=== PATIENT | female | born 1955 | race Caucasian/White ===

== ENCOUNTER 2021-11-11 18:07 | Inpatient (IN) | payer MEDICARE ==
[2021-11-11] MEDS ORDERED: ACETAMINOPHEN TAB 325 MG TAB PO STA (18:35)
--- NOTE | 2021-11-11 18:40 | ED ---
General Adult HPI - General Chief complaint: Urogenital Stated complaint: urogenital Time Seen by Provider: 11/11/21 18:25 Source: patient, RN notes reviewed Mode of arrival: EMS Limitations: no limitations - History of Present Illness Initial comments: Patient is a pleasant 65-year-old female presenting to the emergency department with concerns for urinary tract infection. Patient has had thicker, per her leg urine for the past week. Patient has been fatigued with some general weakness. No abdominal pain. No back pain. No upper respiratory symptoms. Patient was unaware that she had a fever. - Related Data Allergies Allergy/AdvReac Type Severity Reaction Status Date / Time No Known Allergies Allergy Verified 11/11/21 18:24 Review of Systems ROS Statement: Those systems with pertinent positive or pertinent negative responses have been documented in the HPI. ROS Other: All systems not noted in ROS Statement are negative. Constitutional: Reports: as per HPI Eyes: Denies: eye pain ENT: Denies: ear pain Respiratory: Denies: cough Cardiovascular: Denies: chest pain Endocrine: Denies: fatigue Gastrointestinal: Denies: abdominal pain Genitourinary: Reports: as per HPI, urgency, frequency Musculoskeletal: Denies: back pain Skin: Denies: rash Neurological: Denies: weakness Psychiatric: Denies: depression Past Medical History Past Medical History: Deep Vein Thrombosis (DVT) Additional Past Medical History / Comment(s): Diverticulitis 2020, pancreatitis History of Any Multi-Drug Resistant Organisms: None Reported Past Surgical History: Tonsillectomy Additional Past Surgical History / Comment(s): Abdominal surgery for internal bleeding Past Psychological History: No Psychological Hx Reported Smoking Status: Current every day smoker Past Alcohol Use History: None Reported Past Drug Use History: None Reported General Exam Limitations: no limitations General appearance: alert, in no apparent distress Head exam: Present: normocephalic Eye exam: Present: normal appearance Neck exam: Present: normal inspection Respiratory exam: Present: normal lung sounds bilaterally Cardiovascular Exam: Present: tachycardia GI/Abdominal exam: Present: soft. Absent: tenderness Extremities exam: Present: normal inspection Neurological exam: Present: alert Psychiatric exam: Present: normal affect, normal mood Skin exam: Present: normal color. Absent: rash Course Vital Signs 11/11/21 18:18 Temperature 101.4 F H Pulse Rate 105 H Respiratory 17 Rate Blood Pressure 125/95 O2 Sat by Pulse 93 L Oximetry - Reevaluation(s) Reevaluation #1: 11/11/21 19:49 Patient does meet sepsis criteria diagnosed at 1949. Blood culture and lactic acid have been ordered. IV antibiotics will be ordered. 11/11/21 19:50 Patient not a candidate for oral antivirals secondary to symptoms present for the past week. Monoclonal antibodies are not present. Medical Decision Making - Medical Decision Making Case discussed with [facility] physician Dr. Bravo, who will admit - Lab Data Result diagrams: 11/11/21 18:42 11/11/21 18:42 Lab Results 11/11/21 11/11/21 11/11/21 Range/Units 18:42 18:42 18:42 WBC 17.9 H (3.8-10.6) k/uL RBC 4.43 (3.80-5.40) m/uL Hgb 14.3 (11.4-16.0) gm/dL Hct 44.0 (34.0-46.0) % MCV 99.4 (80.0-100.0) fL MCH 32.4 (25.0-35.0) pg MCHC 32.6 (31.0-37.0) g/dL RDW 14.8 (11.5-15.5) % Plt Count 217 (150-450) k/uL MPV 8.7 Neutrophils % 91 % Lymphocytes % 4 % Monocytes % 4 % Eosinophils % 0 % Basophils % 0 % Neutrophils # 16.2 H (1.3-7.7) k/uL Lymphocytes # 0.7 L (1.0-4.8) k/uL Monocytes # 0.6 (0-1.0) k/uL Eosinophils # 0.0 (0-0.7) k/uL Basophils # 0.1 (0-0.2) k/uL Macrocytosis Slight PT 11.9 (9.0-12.0) sec INR 1.1 (<1.2) APTT 27.3 (22.0-30.0) sec Sodium (137-145) mmol/L Potassium (3.5-5.1) mmol/L Chloride (98-107) mmol/L Carbon Dioxide (22-30) mmol/L Anion Gap mmol/L BUN (7-17) mg/dL Creatinine (0.52-1.04) mg/dL Est GFR (CKD-EPI)AfAm (>60 ml/min/1.73 sqM) Est GFR (CKD-EPI)NonAf (>60 ml/min/1.73 sqM) Glucose (74-99) mg/dL Plasma Lactic Acid Herbie (0.7-2.0) mmol/L Calcium (8.4-10.2) mg/dL Total Bilirubin (0.2-1.3) mg/dL AST (14-36) U/L ALT (4-34) U/L Alkaline Phosphatase (38-126) U/L Total Protein (6.3-8.2) g/dL Albumin (3.5-5.0) g/dL Urine Color Yellow Urine Appearance Turbid H (Clear) Urine pH 6.0 (5.0-8.0) Ur Specific [place] 1.019 (1.001-1.035) Urine Protein 1+ H (Negative) Urine Glucose (UA) Negative (Negative) Urine Ketones 1+ H (Negative) Urine Blood Large H (Negative) Urine Nitrite Positive H (Negative) Urine Bilirubin Negative (Negative) Urine Urobilinogen 2.0 (<2.0) mg/dL Ur Leukocyte Esterase Large H (Negative) Urine RBC 83 H (0-5) /hpf Urine WBC >182 H (0-5) /hpf Urine WBC Clumps Many H (None) /hpf Ur Squamous Epith Cells 4 (0-4) /hpf Urine Bacteria Many H (None) /hpf Urine Mucus Many H (None) /hpf Urine Yeast (Budding) Few H (None) /hpf Coronavirus (PCR) (Not Detectd) Influenza Type A RNA (Not Detectd) Influenza Type B (PCR) (Not Detectd) 11/11/21 11/11/21 11/11/21 Range/Units 18:42 18:42 18:42 WBC (3.8-10.6) k/uL RBC (3.80-5.40) m/uL Hgb (11.4-16.0) gm/dL Hct (34.0-46.0) % MCV (80.0-100.0) fL MCH (25.0-35.0) pg MCHC (31.0-37.0) g/dL RDW (11.5-15.5) % Plt Count (150-450) k/uL MPV Neutrophils % % Lymphocytes % % Monocytes % % Eosinophils % % Basophils % % Neutrophils # (1.3-7.7) k/uL Lymphocytes # (1.0-4.8) k/uL Monocytes # (0-1.0) k/uL Eosinophils # (0-0.7) k/uL Basophils # (0-0.2) k/uL Macrocytosis PT (9.0-12.0) sec INR (<1.2) APTT (22.0-30.0) sec Sodium 136 L (137-145) mmol/L Potassium 2.5 L* (3.5-5.1) mmol/L Chloride 102 (98-107) mmol/L Carbon Dioxide 23 (22-30) mmol/L Anion Gap 11 mmol/L BUN 21 H (7-17) mg/dL Creatinine 0.77 (0.52-1.04) mg/dL Est GFR (CKD-EPI)AfAm >90 (>60 ml/min/1.73 sqM) Est GFR (CKD-EPI)NonAf 81 (>60 ml/min/1.73 sqM) Glucose 108 H (74-99) mg/dL Plasma Lactic Acid Herbie 1.6 (0.7-2.0) mmol/L Calcium 7.6 L (8.4-10.2) mg/dL Total Bilirubin 0.5 (0.2-1.3) mg/dL AST 32 (14-36) U/L ALT 24 (4-34) U/L Alkaline Phosphatase 294 H (38-126) U/L Total Protein 5.4 L (6.3-8.2) g/dL Albumin 2.6 L (3.5-5.0) g/dL Urine Color Urine Appearance (Clear) Urine pH (5.0-8.0) Ur Specific [place] (1.001-1.035) Urine Protein (Negative) Urine Glucose (UA) (Negative) Urine Ketones (Negative) Urine Blood (Negative) Urine Nitrite (Negative) Urine Bilirubin (Negative) Urine Urobilinogen (<2.0) mg/dL Ur Leukocyte Esterase (Negative) Urine RBC (0-5) /hpf Urine WBC (0-5) /hpf Urine WBC Clumps (None) /hpf Ur Squamous Epith Cells (0-4) /hpf Urine Bacteria (None) /hpf Urine Mucus (None) /hpf Urine Yeast (Budding) (None) /hpf Coronavirus (PCR) (Not Detectd) Influenza Type A RNA Not Detected (Not Detectd) Influenza Type B (PCR) Not Detected (Not Detectd) 11/11/21 Range/Units 18:42 WBC (3.8-10.6) k/uL RBC (3.80-5.40) m/uL Hgb (11.4-16.0) gm/dL Hct (34.0-46.0) % MCV (80.0-100.0) fL MCH (25.0-35.0) pg MCHC (31.0-37.0) g/dL RDW (11.5-15.5) % Plt Count (150-450) k/uL MPV Neutrophils % % Lymphocytes % % Monocytes % % Eosinophils % % Basophils % % Neutrophils # (1.3-7.7) k/uL Lymphocytes # (1.0-4.8) k/uL Monocytes # (0-1.0) k/uL Eosinophils # (0-0.7) k/uL Basophils # (0-0.2) k/uL Macrocytosis PT (9.0-12.0) sec INR (<1.2) APTT (22.0-30.0) sec Sodium (137-145) mmol/L Potassium (3.5-5.1) mmol/L Chloride (98-107) mmol/L Carbon Dioxide (22-30) mmol/L Anion Gap mmol/L BUN (7-17) mg/dL Creatinine (0.52-1.04) mg/dL Est GFR (CKD-EPI)AfAm (>60 ml/min/1.73 sqM) Est GFR (CKD-EPI)NonAf (>60 ml/min/1.73 sqM) Glucose (74-99) mg/dL Plasma Lactic Acid Herbie (0.7-2.0) mmol/L Calcium (8.4-10.2) mg/dL Total Bilirubin (0.2-1.3) mg/dL AST (14-36) U/L ALT (4-34) U/L Alkaline Phosphatase (38-126) U/L Total Protein (6.3-8.2) g/dL Albumin (3.5-5.0) g/dL Urine Color Urine Appearance (Clear) Urine pH (5.0-8.0) Ur Specific [place] (1.001-1.035) Urine Protein (Negative) Urine Glucose (UA) (Negative) Urine Ketones (Negative) Urine Blood (Negative) Urine Nitrite (Negative) Urine Bilirubin (Negative) Urine Urobilinogen (<2.0) mg/dL Ur Leukocyte Esterase (Negative) Urine RBC (0-5) /hpf Urine WBC (0-5) /hpf Urine WBC Clumps (None) /hpf Ur Squamous Epith Cells (0-4) /hpf Urine Bacteria (None) /hpf Urine Mucus (None) /hpf Urine Yeast (Budding) (None) /hpf Coronavirus (PCR) Detected A (Not Detectd) Influenza Type A RNA (Not Detectd) Influenza Type B (PCR) (Not Detectd) Disposition Clinical Impression: Urinary tract infection, Sepsis, Hypokalemia, COVID-19 Disposition: ADMITTED IP TO THIS HOSP Is patient prescribed a controlled substance at d/c from ED?: No Referrals: None,Stated [Primary Care Provider] - 1-2 days
[2021-11-11 18:55] LABS: Basophils # (A) 0.1 k/uL (0-0.2); Basophils % (A) 0 %; Eosinophils % (A) 0 %; HGB 14.3 gm/dL (11.4-16.0); Lymphocytes # (A) 0.7 k/uL (1.0-4.8); Lymphocytes % (A) 4 %; MCH 32.4 pg (25.0-35.0); MCHC 32.6 g/dL (31.0-37.0); MCV 99.4 fL (80.0-100.0); Macrocytosis Slight; Mean Platelet Volume 8.7; Monocytes # (A) 0.6 k/uL (0-1.0); Monocytes % (A) 4 %; Neutrophils # (A) 16.2 k/uL (1.3-7.7); Neutrophils % (A) 91 %; Platelet Count 217 k/uL (150-450); RBC 4.43 m/uL (3.80-5.40); RDW 14.8 % (11.5-15.5); WBC 17.9 k/uL (3.8-10.6)
[2021-11-11 19:04] LABS: Appearance,Urine Turbid (Clear); Bacteria,Urine Many /hpf; Bilirubin,Urine Negative (Negative); Blood,Urine Large (Negative); Budding Yeast,Urine Few /hpf; Color,Urine Yellow; Glucose,Urine (UA) Negative (Negative); INR 1.1 (<1.2); Ketones,Urine 1+ (Negative); Leukocyte Esterase,Urine Large (Negative); Mucus,Urine Many /hpf; Nitrite,Urine Positive (Negative); Partial Thromboplastin Time 27.3 sec (22.0-30.0); Protein,Urine 1+ (Negative); Prothrombin Time 11.9 sec (9.0-12.0); RBC,Urine 83 /hpf (0-5); Specific Gravity,Urine 1.019 (1.001-1.035); Squamous Epithelial Cell,Urine 4 /hpf (0-4); WBC,Urine >182 /hpf (0-5)
[2021-11-11 19:06] LABS: ALT 24 U/L (4-34); AST 32 U/L (14-36); African American GFR (CKD) >90 (>60 ml/min/1.73 sqM); Albumin 2.6 g/dL (3.5-5.0); Alkaline Phosphatase 294 U/L (38-126); Anion Gap 11 mmol/L; Blood Urea Nitrogen 21 mg/dL (7-17); Calcium 7.6 mg/dL (8.4-10.2); Carbon Dioxide 23 mmol/L (22-30); Chloride 102 mmol/L (98-107); Glucose 108 mg/dL (74-99); Non-African American GFR(CKD) 81 (>60 ml/min/1.73 sqM); Sodium 136 mmol/L (137-145); Total Bilirubin 0.5 mg/dL (0.2-1.3); Total Protein 5.4 g/dL (6.3-8.2)
[2021-11-11 19:20] LABS: Potassium 2.5 mmol/L (3.5-5.1)
[2021-11-11] MEDS ORDERED: Potassium Replacement Protocol 1 EACH MISC MISCELLANE PRN (19:24)
--- NOTE | 2021-11-11 19:37 | XR ---
EXAMINATION: XR chest 2V DATE AND TIME: 11/11/2021 7:18 PM CLINICAL INDICATION: Weakness; fever TECHNIQUE: Departmental protocol COMPARISON: None FINDINGS: There appears to be an area of right infrahilar added ill-defined opacity, findings which c an correlate with a clinical diagnosis of pneumonia. Would suggest six-week follow-up PA and lateral full inspiratory radiography, to prove resolution of the findings. The pleural spaces are negative. The cardiac silhouette is not enlarged. The remainder of the mediastinal silhouette is unremarkable. The skeletal structures and soft tissues are negative for acute findings. IMPRESSION: Right infrahilar atelectatic opacity as detailed.
[2021-11-11] MEDS: POTASSIUM CHLORIDE ER 20 MEQ TAB.ER PO SCH ×3 (19:38→22:44)
[2021-11-11] MEDS: SODIUM CHLORIDE 0.9% 1,000 ML IV SCH ×2 (19:39→23:36)
[2021-11-11] MEDS ORDERED: NALOXONE 0.4 MG/ML 1 ML VIAL IV PRN (19:52)
[2021-11-11] MEDS: ZINC SULFATE 220 MG CAP PO SCH (21:26)
[2021-11-11] MEDS: CHOLECALCIFEROL 125 MCG (5000 IU) TABLET PO SCH (21:26)
[2021-11-11] MEDS: ASCORBIC ACID 500 MG TAB PO SCH (21:32)
[2021-11-12] MEDS: ACETAMINOPHEN TAB 325 MG TAB PO PRN ×2 (04:03→18:23)
[2021-11-12] MEDS: POTASSIUM CHLORIDE 10 MEQ in WATER FOR INJECTION 1 100ML.BAG IVPB SCH ×4 (04:03→15:42)
[2021-11-12] MEDS: SODIUM CHLORIDE 0.9% 1,000 ML IV SCH ×3 (04:04→11:24)
--- NOTE | 2021-11-12 05:29 | P.HPIM ---
History of Present Illness H&P Date: 11/11/21 Chief Complaint: generalized fatigue 65-year-old female denies any significant past medical history Patient comes in feeling generally fatigued and exhausted this been going on for about 1 week she reports decreased by mouth intake and exercise intolerance. She's been spiking some fevers and chills and also reports some dysuria and today noticed hematuria. Other than that she denies any sore throat denies any headaches denies any cough denies any muscle aches or body aches denies any loss of smell or taste sensation denies any profuse sweating denies any palpitations denies any chest pain denies abdominal pain denies any nausea vomiting denies any diarrhea or any upper respiratory infection symptoms denies any shortness of breath. Patient denies any sick contact, she is not vaccinated against Covid Workup in the ED was suggestive of sepsis secondary to UTI she was also this past the for Covid Blood work also showed low potassium level. Patient does admit to tobacco smoking she smokes 3 cigarettes a day but denies any illicit drugs or alcohol use Review of Systems Pertinent positives as noted in HPI. All other systems were reviewed and are negative " Past Medical History Past Medical History: Deep Vein Thrombosis (DVT) Additional Past Medical History / Comment(s): Diverticulitis 2020, pancreatitis History of Any Multi-Drug Resistant Organisms: None Reported Past Surgical History: Tonsillectomy Additional Past Surgical History / Comment(s): Abdominal surgery for internal bleeding Past Psychological History: No Psychological Hx Reported Smoking Status: Current every day smoker Past Alcohol Use History: None Reported Past Drug Use History: None Reported - Past Family History Family Additional Family Medical History / Comment(s): Denies any family history of cancer or coronary artery disease Medications and Allergies Home Medications Medication Instructions Recorded Confirmed Type L.acidoph,Paracasei, B.lactis 1 cap PO DAILY 11/11/21 11/11/21 History [Probiotic] Allergies Allergy/AdvReac Type Severity Reaction Status Date / Time No Known Allergies Allergy Verified 11/11/21 21:02 Physical Exam Vitals: Vital Signs Temp Pulse Resp BP Pulse Ox 11/11/21 18:18 101.4 F H 105 H 17 125/95 93 L Intake and Output 11/11/21 11/11/21 11/11/21 06:59 14:59 22:59 Other: Voiding Method Toilet Weight 77.111 kg Constitutional: No acute distress, conversant, cooperative Eyes: Anicteric sclerae, moist conjunctiva, Pupils equal round reactive to light ENMT: NC/AT Oropharynx clear, no erythema, or exudates Neck: Supple, no masses, or JVD No carotid bruits No thyromegaly Lungs: Clear to auscultation Clear to percussion Normal respiratory effort, no accessory muscle use Cardiovascular: Heart regular in rate and rhythm, No murmurs, gallops, or rubs No peripheral edema Abdominal: Soft some discomfort to deep palpation over the suprapubic region no guarding, rebound or rigidity Abdomen moving with respiration Normoactive bowel sounds No hepatomegaly, No splenomegaly No palpable mass No abdominal wall hernia noted Skin: Normal temperature, tone, texture, turgor No induration No subcutaneous nodules No rash, lesions No ulcers Extremities: No digital cyanosis No clubbing Pedal pulses intact and symmetrical Radial pulses intact and symmetrical No calf tenderness Psychiatric: Alert and oriented to person, place and time Appropriate affect fair judgement Neuro Muscles Strength 5/5 in all 4 extremities Sensation to light touch grossly present throughout Cranial nerves II-XII grossly intact No focal sensory deficits Lymphatics: no palpable cervical or supraclavicular , or inguinal lymph nodes Results CBC & Chem 7: 11/11/21 18:42 11/12/21 01:01 Labs: Abnormal Lab Results - Last 24 Hours (Table) 11/11/21 11/11/21 11/11/21 Range/Units 18:42 18:42 18:42 WBC 17.9 H (3.8-10.6) k/uL Neutrophils # 16.2 H (1.3-7.7) k/uL Lymphocytes # 0.7 L (1.0-4.8) k/uL Sodium 136 L (137-145) mmol/L Potassium 2.5 L* (3.5-5.1) mmol/L BUN 21 H (7-17) mg/dL Glucose 108 H (74-99) mg/dL Calcium 7.6 L (8.4-10.2) mg/dL Alkaline Phosphatase 294 H (38-126) U/L Total Protein 5.4 L (6.3-8.2) g/dL Albumin 2.6 L (3.5-5.0) g/dL Urine Appearance Turbid H (Clear) Urine Protein 1+ H (Negative) Urine Ketones 1+ H (Negative) Urine Blood Large H (Negative) Urine Nitrite Positive H (Negative) Ur Leukocyte Esterase Large H (Negative) Urine RBC 83 H (0-5) /hpf Urine WBC >182 H (0-5) /hpf Urine WBC Clumps Many H (None) /hpf Urine Bacteria Many H (None) /hpf Urine Mucus Many H (None) /hpf Urine Yeast (Budding) Few H (None) /hpf Coronavirus (PCR) (Not Detectd) 11/11/21 Range/Units 18:42 WBC (3.8-10.6) k/uL Neutrophils # (1.3-7.7) k/uL Lymphocytes # (1.0-4.8) k/uL Sodium (137-145) mmol/L Potassium (3.5-5.1) mmol/L BUN (7-17) mg/dL Glucose (74-99) mg/dL Calcium (8.4-10.2) mg/dL Alkaline Phosphatase (38-126) U/L Total Protein (6.3-8.2) g/dL Albumin (3.5-5.0) g/dL Urine Appearance (Clear) Urine Protein (Negative) Urine Ketones (Negative) Urine Blood (Negative) Urine Nitrite (Negative) Ur Leukocyte Esterase (Negative) Urine RBC (0-5) /hpf Urine WBC (0-5) /hpf Urine WBC Clumps (None) /hpf Urine Bacteria (None) /hpf Urine Mucus (None) /hpf Urine Yeast (Budding) (None) /hpf Coronavirus (PCR) Detected A (Not Detectd) Assessment and Plan Assessment: Sepsis secondary to UTI Covid positive Not requiring supplemental oxygen Follow-up cultures Initiated on Rocephin IV fluid hydration Monitor vital signs Tylenol for fever Zofran when necessary for nausea vomiting Hypokalemia Replace and follow-up levels DVT prophylaxis Lovenox subcu Full code
[2021-11-12] MEDS: ENOXAPARIN 40 MG/0.4 ML SYRINGE SQ SCH (08:26)
[2021-11-12] MEDS: ZINC SULFATE 220 MG CAP PO SCH (08:27)
[2021-11-12] MEDS: ASCORBIC ACID 500 MG TAB PO SCH ×2 (08:27→21:53)
[2021-11-12] MEDS: CHOLECALCIFEROL 125 MCG (5000 IU) TABLET PO SCH (08:27)
[2021-11-12 09:26] LABS: Basophils # (A) 0.05 X 10*3/uL (0.00-0.10); Basophils % (A) 0.3 %; Eosinophils # (A) 0.01 X 10*3/uL (0.04-0.35); Eosinophils % (A) 0.1 %; HCT 36.5 % (37.2-46.3); HGB 12.8 g/dL (12.0-15.0); Immature Grans, Automated 1.1 %; Lymphocytes # (A) 0.88 X 10*3/uL (0.90-5.00); Lymphocytes % (A) 5.1 %; MCH 33.7 pg (27.0-32.0); MCHC 35.1 g/dL (32.0-37.0); MCV 96.1 fL (80.0-97.0); Monocytes # (A) 1.07 X 10*3/uL (0.20-1.00); Monocytes % (A) 6.2 %; NRBC Per 100 WBC 0 /100 WBCS (0.0-0.0); Neutrophils # (A) 14.95 X 10*3/uL (1.80-7.70); Neutrophils % (A) 87.2 %; Platelet Count 184 X 10*3/uL (140-440); RDW 15.6 % (11.5-14.5); WBC 17.15 X 10*3/uL (4.50-10.00)
[2021-11-12 09:43] LABS: African American GFR (CKD) 110.1 (60.0-200.0); Anion Gap 13.3 mmol/L (10.00-18.00); BUN/Creat Ratio 27.83 Ratio (12.00-20.00); Blood Urea Nitrogen 16.7 mg/dL (9.0-27.0); Calcium 7.2 mg/dL (8.7-10.3); Carbon Dioxide 20.7 mmol/L (20.0-27.5)
[2021-11-12] MEDS ORDERED: VANCOMYCIN 1,500 MG in SODIUM CHLORIDE 0.9% 250 ML IVPB ONE (17:15)
[2021-11-12] MEDS ORDERED: ONDANSETRON 4 MG/2 ML VIAL IVP PRN (17:46)
--- NOTE | 2021-11-12 17:49 | P.PN ---
Subjective Progress Note Date: 11/12/21 Patient was seen and examined. No acute events overnight. Patient reports fatigue. She reports urinary urgency. She denies any chest pain, shortness of breath or palpitations. No nausea or vomiting. No fever or chills. T-max of 101.1 Fahrenheit overnight. Vital signs otherwise stable. CBC shows l eukocytosis of 17.15. CMP shows potassium of 3 and calcium is 7.2. Blood cultures positive for coagulase-negative staph 2. General: [non toxic], [no distress], [appears at stated age] Derm: [warm], [dry] Head: [atraumatic], [normocephalic], [symmetric] Eyes: [EOMI], [no lid lag], [anicteric sclera] Mouth: [no lip lesion], [mucus membranes moist] Cardiovascular: [Tachycardic], [no murmur] Lungs: [Decreased breath sounds bilateral], [no rhonchi, no rales] , [no accessory muscle use] Abdominal: [soft], [ nontender to palpation], [no guarding], [no appreciable organomegaly] Ext: [no gross muscle atrophy], [no edema], [no contractures] Neuro: [no focal neuro deficits] Psych: [Alert], [oriented], [appropriate affect] #UTI sepsis #Gram-positive bacteremia #Severe hypokalemia #COVID-19 infection Urinalysis suggesting UTI. Patient has urinary urgency. Continue Rocephin (11/12). Follow urine culture. Patient does meet sepsis criteria with leukocytosis, tachycardia and positive source of infection. Lactic acid is negative. Continue normal saline at 75 mL per hour. Repeat blood cultures ordered for tomorrow. Patient started on vancomycin (11/12) to provide adequate coverage. Continue telemetry monitoring. Potassium replaced via protocol. Repeat BMP tomorrow morning. Patient appears asymptomatic with regard to her COVID-19 infection. She does not require any supplemental oxygen. Continue to monitor. DVT prophylaxis: [Lovenox] Discussed with: [Patient] Anticipated discharge: [2-3 days] Anticipated discharge place: [Home] A total of [30] minutes was spent on the care of this complex patient more than 50% of the time was spent in counseling and care coordination. Objective - Vital Signs Vital signs: Vital Signs Temp 99.1 F 11/12/21 12:38 Pulse 100 11/12/21 17:15 Resp 18 11/12/21 17:15 BP 122/65 11/12/21 17:15 Pulse Ox 94 L 11/12/21 17:15 FiO2 Intake & Output 11/11/21 11/12/21 11/12/21 18:59 06:59 18:59 Weight 77.111 kg Other: Voiding Method Toilet - Labs CBC & Chem 7: 11/12/21 05:39 11/12/21 05:39 Labs: Abnormal Lab Results - Last 24 Hours (Table) 11/11/21 11/11/21 11/11/21 Range/Units 18:42 18:42 18:42 WBC 17.9 H (3.8-10.6) k/uL RBC (4.10-5.20) X 10*6/uL Hct (37.2-46.3) % MCH (27.0-32.0) pg RDW (11.5-14.5) % Immature Gran # (0.00-0.04) X 10*3/uL Neutrophils # 16.2 H (1.3-7.7) k/uL Lymphocytes # 0.7 L (1.0-4.8) k/uL Monocytes # (0.20-1.00) X 10*3/uL Eosinophils # (0.04-0.35) X 10*3/uL Sodium 136 L (137-145) mmol/L Potassium 2.5 L* (3.5-5.1) mmol/L BUN 21 H (7-17) mg/dL BUN/Creatinine Ratio (12.00-20.00) Ratio Glucose 108 H (74-99) mg/dL Calcium 7.6 L (8.4-10.2) mg/dL Alkaline Phosphatase 294 H (38-126) U/L Total Protein 5.4 L (6.3-8.2) g/dL Albumin 2.6 L (3.5-5.0) g/dL Urine Appearance Turbid H (Clear) Urine Protein 1+ H (Negative) Urine Ketones 1+ H (Negative) Urine Blood Large H (Negative) Urine Nitrite Positive H (Negative) Ur Leukocyte Esterase Large H (Negative) Urine RBC 83 H (0-5) /hpf Urine WBC >182 H (0-5) /hpf Urine WBC Clumps Many H (None) /hpf Urine Bacteria Many H (None) /hpf Urine Mucus Many H (None) /hpf Urine Yeast (Budding) Few H (None) /hpf Coronavirus (PCR) (Not Detectd) 11/11/21 11/12/21 11/12/21 Range/Units 18:42 01:01 05:39 WBC 17.15 H (3.8-10.6) k/uL RBC 3.80 L (4.10-5.20) X 10*6/uL Hct 36.5 L (37.2-46.3) % MCH 33.7 H (27.0-32.0) pg RDW 15.6 H (11.5-14.5) % Immature Gran # 0.19 H (0.00-0.04) X 10*3/uL Neutrophils # 14.95 H (1.3-7.7) k/uL Lymphocytes # 0.88 L (1.0-4.8) k/uL Monocytes # 1.07 H (0.20-1.00) X 10*3/uL Eosinophils # 0.01 L (0.04-0.35) X 10*3/uL Sodium (137-145) mmol/L Potassium 2.8 L (3.5-5.1) mmol/L BUN (7-17) mg/dL BUN/Creatinine Ratio (12.00-20.00) Ratio Glucose (74-99) mg/dL Calcium (8.4-10.2) mg/dL Alkaline Phosphatase (38-126) U/L Total Protein (6.3-8.2) g/dL Albumin (3.5-5.0) g/dL Urine Appearance (Clear) Urine Protein (Negative) Urine Ketones (Negative) Urine Blood (Negative) Urine Nitrite (Negative) Ur Leukocyte Esterase (Negative) Urine RBC (0-5) /hpf Urine WBC (0-5) /hpf Urine WBC Clumps (None) /hpf Urine Bacteria (None) /hpf Urine Mucus (None) /hpf Urine Yeast (Budding) (None) /hpf Coronavirus (PCR) Detected A (Not Detectd) 11/12/21 Range/Units 05:39 WBC (3.8-10.6) k/uL RBC (4.10-5.20) X 10*6/uL Hct (37.2-46.3) % MCH (27.0-32.0) pg RDW (11.5-14.5) % Immature Gran # (0.00-0.04) X 10*3/uL Neutrophils # (1.3-7.7) k/uL Lymphocytes # (1.0-4.8) k/uL Monocytes # (0.20-1.00) X 10*3/uL Eosinophils # (0.04-0.35) X 10*3/uL Sodium (137-145) mmol/L Potassium 3.0 L (3.5-5.1) mmol/L BUN (7-17) mg/dL BUN/Creatinine Ratio 27.83 H (12.00-20.00) Ratio Glucose (74-99) mg/dL Calcium 7.2 L (8.4-10.2) mg/dL Alkaline Phosphatase (38-126) U/L Total Protein (6.3-8.2) g/dL Albumin (3.5-5.0) g/dL Urine Appearance (Clear) Urine Protein (Negative) Urine Ketones (Negative) Urine Blood (Negative) Urine Nitrite (Negative) Ur Leukocyte Esterase (Negative) Urine RBC (0-5) /hpf Urine WBC (0-5) /hpf Urine WBC Clumps (None) /hpf Urine Bacteria (None) /hpf Urine Mucus (None) /hpf Urine Yeast (Budding) (None) /hpf Coronavirus (PCR) (Not Detectd) Microbiology - Last 24 Hours (Table) 11/11/21 18:45 Blood Culture Gram Stain - Preliminary Blood Blood Culture - Preliminary Coagulase Negative Staph 11/11/21 18:28 Blood Culture Gram Stain - Preliminary Blood 11/11/21 18:45 Blood Culture - Final Blood 11/11/21 18:28 Blood Culture - Final Blood 11/11/21 18:42 Urine Culture - Preliminary Urine,Clean Catch
[2021-11-13] MEDS: SODIUM CHLORIDE 0.9% 1,000 ML IV SCH ×2 (01:25→11:11)
[2021-11-13] MEDS: VANCOMYCIN 1,500 MG in SODIUM CHLORIDE 0.9% 250 ML IVPB SCH ×2 (07:19→17:54)
[2021-11-13] MEDS: CHOLECALCIFEROL 125 MCG (5000 IU) TABLET PO SCH (08:41)
[2021-11-13] MEDS: ASCORBIC ACID 500 MG TAB PO SCH ×2 (08:41→20:07)
[2021-11-13] MEDS: ZINC SULFATE 220 MG CAP PO SCH (08:41)
[2021-11-13] MEDS: ENOXAPARIN 40 MG/0.4 ML SYRINGE SQ SCH (08:41)
[2021-11-13 11:26] LABS: Basophils # (A) 0.05 X 10*3/uL (0.00-0.10); Basophils % (A) 0.3 %; Eosinophils # (A) 0.03 X 10*3/uL (0.04-0.35); Eosinophils % (A) 0.2 %; HGB 13.9 g/dL (12.0-15.0); Immature Grans, Automated 1.1 %; Lymphocytes # (A) 1.46 X 10*3/uL (0.90-5.00); MCH 32.4 pg (27.0-32.0); MCHC 33.9 g/dL (32.0-37.0); MCV 95.6 fL (80.0-97.0); Mean Platelet Volume 11.1 fL (9.5-12.2); Monocytes # (A) 0.76 X 10*3/uL (0.20-1.00); Monocytes % (A) 4.7 %; NRBC Per 100 WBC 0 /100 WBCS (0.0-0.0); Neutrophils # (A) 13.83 X 10*3/uL (1.80-7.70); Neutrophils % (A) 84.7 %; Platelet Count 209 X 10*3/uL (140-440); RBC 4.29 X 10*6/uL (4.10-5.20); RDW 15.9 % (11.5-14.5); WBC 16.31 X 10*3/uL (4.50-10.00)
[2021-11-13 11:48] LABS: African American GFR (CKD) 114.6 (60.0-200.0); Anion Gap 15.6 mmol/L (10.00-18.00); BUN/Creat Ratio 24.29 Ratio (12.00-20.00); Blood Urea Nitrogen 12.9 mg/dL (9.0-27.0); Calcium 7.5 mg/dL (8.7-10.3); Carbon Dioxide 20.9 mmol/L (20.0-27.5); Non-African American GFR(CKD) 98.9 (60.0-200.0)
--- NOTE | 2021-11-13 12:53 | P.PN ---
Subjective Progress Note Date: 11/13/21 Patient was seen and examined. No acute events overnight. Patient reports fatigue. She reports improvement in her urinary urgency. She denies any chest pain, shortness of breath or palpitations. No nausea or vomiting. No fever or chills. Vital signs stable. CBC shows leukocytosis of 16.31. CMP shows potassium of 3 and calcium is 7.5. Blood cultures positive for coagulase- negative staph 2. General: [non toxic], [no distress], [appears at stated age] Derm: [warm], [dry] Head: [atraumatic], [normocephalic], [symmetric] Eyes: [EOMI], [no lid lag], [anicteric sclera] Mouth: [no lip lesion], [mucus membranes moist] Cardiovascular: [Normal S1 S2], [no murmur] Lungs: [Decreased breath sounds bilateral], [no rhonchi, no rales] , [no accessory muscle use] Abdominal: [soft], [ nontender to palpation], [no guarding], [no appreciable organomegaly] Ext: [no gross muscle atrophy], [no edema], [no contractures] Neuro: [no focal neuro deficits] Psych: [Alert], [oriented], [appropriate affect] #UTI sepsis #Gram-positive bacteremia #Severe hypokalemia #COVID-19 infection Urinalysis suggesting UTI. Patient has urinary urgency. Continue Rocephin (11/12). Follow urine culture. Patient does meet sepsis criteria with leukocytosis, tachycardia and positive source of infection. Lactic acid is negative. Continue normal saline at 75 mL per hour. Repeat blood cultures collected. Patient started on vancomycin (11/12) to provide adequate coverage. Continue telemetry monitoring. Potassium replaced via protocol. Repeat BMP tomorrow morning. Patient appears asymptomatic with regard to her COVID-19 infection. She does not require any supplemental oxygen. Continue to monitor. DVT prophylaxis: [Lovenox] Discussed with: [Patient] Anticipated discharge: [2-3 days] Anticipated discharge place: [Home] A total of [30] minutes was spent on the care of this complex patient more than 50% of the time was spent in counseling and care coordination. Objective - Vital Signs Vital signs: Vital Signs Temp 98.4 F 11/13/21 10:16 Pulse 84 11/13/21 10:16 Resp 21 11/13/21 10:16 BP 130/71 11/13/21 10:16 Pulse Ox 96 11/13/21 10:16 FiO2 Intake & Output 11/12/21 11/13/21 11/13/21 18:59 06:59 18:59 Output Total 300 Balance -300 Weight 77.111 kg Output: Urine 300 Other: Voiding Method Toilet # Voids 1 2 # Bowel Movements 2 - Labs CBC & Chem 7: 11/13/21 07:44 11/13/21 07:44 Labs: Abnormal Lab Results - Last 24 Hours (Table) 11/13/21 11/13/21 Range/Units 07:44 07:44 WBC 16.31 H (4.50-10.00) X 10*3/uL MCH 32.4 H (27.0-32.0) pg RDW 15.9 H (11.5-14.5) % Immature Gran # 0.18 H (0.00-0.04) X 10*3/uL Neutrophils # 13.83 H (1.80-7.70) X 10*3/uL Eosinophils # 0.03 L (0.04-0.35) X 10*3/uL Potassium 3.0 L (3.5-5.5) mmol/L Creatinine 0.5 L (0.6-1.5) mg/dL BUN/Creatinine Ratio 24.29 H (12.00-20.00) Ratio Calcium 7.5 L (8.7-10.3) mg/dL Microbiology - Last 24 Hours (Table) 11/11/21 18:45 Blood Culture Gram Stain - Preliminary Blood Blood Culture - Preliminary Coagulase Negative Staph 11/11/21 18:28 Blood Culture Gram Stain - Preliminary Blood 11/11/21 18:45 Blood Culture - Final Blood 11/11/21 18:28 Blood Culture - Final Blood
[2021-11-13] MEDS: MELATONIN 5 MG TABLET PO SCH (20:07)
[2021-11-13] MEDS: ACETAMINOPHEN TAB 325 MG TAB PO PRN (20:09)
[2021-11-14] MEDS: SODIUM CHLORIDE 0.9% 1,000 ML IV SCH ×2 (03:22→16:51)
[2021-11-14] MEDS: ACETAMINOPHEN TAB 325 MG TAB PO PRN ×2 (04:42→12:29)
[2021-11-14] MEDS: VANCOMYCIN 1,500 MG in SODIUM CHLORIDE 0.9% 250 ML IVPB SCH (04:43)
[2021-11-14 07:53] LABS: African American GFR (CKD) >90 (>60 ml/min/1.73 sqM); Anion Gap 7 mmol/L; Blood Urea Nitrogen 8 mg/dL (7-17); Calcium 7.1 mg/dL (8.4-10.2); Carbon Dioxide 26 mmol/L (22-30); Chloride 106 mmol/L (98-107); Glucose 105 mg/dL (74-99); Non-African American GFR(CKD) >90 (>60 ml/min/1.73 sqM); Sodium 139 mmol/L (137-145)
[2021-11-14 08:04] LABS: Potassium 2.7 mmol/L (3.5-5.1)
[2021-11-14] MEDS ORDERED: Potassium Replacement Protocol 1 EACH MISC MISCELLANE PRN ×2 (08:23→18:29)
[2021-11-14] MEDS: ASCORBIC ACID 500 MG TAB PO SCH ×2 (08:36→21:33)
[2021-11-14] MEDS: ENOXAPARIN 40 MG/0.4 ML SYRINGE SQ SCH (08:36)
[2021-11-14] MEDS: ZINC SULFATE 220 MG CAP PO SCH (08:36)
[2021-11-14] MEDS: POTASSIUM CHLORIDE ER 20 MEQ TAB.ER PO SCH ×5 (08:36→21:33)
[2021-11-14] MEDS: CHOLECALCIFEROL 125 MCG (5000 IU) TABLET PO SCH (08:37)
--- NOTE | 2021-11-14 14:48 | P.PN ---
Subjective Progress Note Date: 11/14/21 Principal diagnosis: UTI Patient seen and examined today. She still complaints of fatigue she does report some improvement of her urinary symptoms however she still having some ur gency. She denies any difficulty in breathing Objective - Vital Signs Vital signs: Vital Signs Temp 98.2 F 11/14/21 14:00 Pulse 89 11/14/21 14:00 Resp 17 11/14/21 14:00 BP 96/53 11/14/21 14:00 Pulse Ox 95 11/14/21 14:00 FiO2 Intake & Output 11/13/21 11/14/21 11/14/21 18:59 06:59 18:59 Output Total 1 Balance -1 Output: Urine 1 Other: Voiding Method Toilet # Voids 2 3 # Bowel Movements 1 - Exam General: [non toxic], [no distress], [appears at stated age] Derm: [warm], [dry] Head: [atraumatic], [normocephalic], [symmetric] Eyes: [EOMI], [no lid lag], [anicteric sclera] Mouth: [no lip lesion], [mucus membranes moist] Cardiovascular: [Normal S1 S2], [no murmur] Lungs: [Decreased breath sounds bilateral], [no rhonchi, no rales] , [no accessory muscle use] Abdominal: [soft], [ nontender to palpation], [no guarding], [no appreciable organomegaly] Ext: [no gross muscle atrophy], [no edema], [no contractures] Neuro: [no focal neuro deficits] Psych: [Alert], [oriented], [appropriate affect] - Labs CBC & Chem 7: 11/13/21 07:44 11/14/21 06:11 Labs: Abnormal Lab Results - Last 24 Hours (Table) 11/14/21 Range/Units 06:11 Potassium 2.7 L* (3.5-5.1) mmol/L Glucose 105 H (74-99) mg/dL Calcium 7.1 L (8.4-10.2) mg/dL Microbiology - Last 24 Hours (Table) 11/11/21 18:45 Blood Culture Gram Stain - Final Blood Blood Culture - Final Coagulase Negative Staph Coagulase Negative Staph#2 11/11/21 18:28 Blood Culture Gram Stain - Final Blood Blood Culture - Final Coagulase Negative Staph Coagulase Negative Staph#2 11/11/21 18:42 Urine Culture - Final Urine,Clean Catch Escherichia coli 11/13/21 07:44 Blood Culture - Preliminary Blood No Growth after 24 hours Assessment and Plan Assessment: #UTI sepsis #Gram-positive bacteremia #Severe hypokalemia #COVID-19 infection Urine cultures reveal E. coli. Patient is on ceftriaxone. Repeat blood cultures obtained on 11/13/2021 shows no growth -Aggressive potassium replacement ordered through protocol -Disposition: Anticipate discharge in the next 24 hours (1) Urinary tract infection Current Visit: Yes Status: Acute Code(s): N39.0 - URINARY TRACT INFECTION, S ITE NOT SPECIFIED SNOMED Code(s): 88797989
[2021-11-14] MEDS: MELATONIN 5 MG TABLET PO SCH (21:33)
[2021-11-15] MEDS ORDERED: VANCOMYCIN TROUGH DUE 1 EACH MISC MISCELLANE ONE (05:00)
[2021-11-15 06:15] LABS: Potassium 3.1 mmol/L (3.5-5.1)
[2021-11-15 06:17] LABS: African American GFR (CKD) >90 (>60 ml/min/1.73 sqM); Anion Gap 10 mmol/L; Blood Urea Nitrogen 3 mg/dL (7-17); Calcium 7.7 mg/dL (8.4-10.2); Carbon Dioxide 22 mmol/L (22-30); Chloride 107 mmol/L (98-107); Glucose 103 mg/dL (74-99); Non-African American GFR(CKD) >90 (>60 ml/min/1.73 sqM); Sodium 139 mmol/L (137-145)
[2021-11-15] MEDS: ASCORBIC ACID 500 MG TAB PO SCH (07:45)
[2021-11-15] MEDS: CHOLECALCIFEROL 125 MCG (5000 IU) TABLET PO SCH (07:45)
[2021-11-15] MEDS: ENOXAPARIN 40 MG/0.4 ML SYRINGE SQ SCH (07:45)
[2021-11-15] MEDS: ZINC SULFATE 220 MG CAP PO SCH (07:45)
[2021-11-15] MEDS: POTASSIUM CHLORIDE ER 20 MEQ TAB.ER PO SCH ×4 (07:45→13:56)
[2021-11-15] MEDS: SODIUM CHLORIDE 0.9% 1,000 ML IV SCH (07:48)
[2021-11-15] MEDS ORDERED: POTASSIUM CHLORIDE ER 20 MEQ TAB.ER PO STA (09:09)
[2021-11-15 10:08] VITALS: RESP 16
--- NOTE | 2021-11-15 14:09 | P.DS ---
Providers Date of admission: 11/11/21 19:52 Attending physician: Chiquis Kessler MD Primary care physician: Stated None - Discharge Diagnosis(es) (1) Urinary tract infection Current Visit: Yes Status: Acute Hospital Course: Patient is a 65-year-old female with past medical history significant for DVT, diverticulitis, peritonitis. She presented to the hospital with increased fatigue and exhaustion and dysuria. Patient had workup in the hospital which revealed sepsis secondary to UTI as well as COVID-19 infection. Patient was admitted to the hospital and started on IV antibiotics. Patient's microbiology cultures revealed first set of blood cultures showing coagulase negative. Repeat blood culture showed no growth. Patient was transitioned to oral Keflex on discharge for the urinary tract infection. On day of discharge patient was not having any episodes of fevers respiratory status remained stable and she was on room air. Patient is being discharged home in stable medical condition Plan - Discharge Summary Discharge Rx Participant: Yes New Discharge Prescriptions: New Cephalexin [Keflex] 500 mg PO Q12HR 7 Days #2 cap Potassium Chloride 40 meq PO PC-BID #240 ml Continue L.acidoph,Paracasei, B.lactis [Probiotic] 1 cap PO DAILY Discharge Medication List L.acidoph,Paracasei, B.lactis [Probiotic] 1 cap PO DAILY 11/11/21 [History] Cephalexin [Keflex] 500 mg PO Q12HR 7 Days #2 cap 11/15/21 [Rx] Potassium Chloride 40 meq PO PC-BID #240 ml 11/15/21 [Rx] Follow up Appointment(s)/Referral(s): None,Stated [Primary Care Provider] - 1-2 days Patient Instructions/Handouts: Urinary Tract Infection in Women (DC), Hypokalemia (DC), Sepsis (DC), COVID-19 (Coronavirus Disease 2019) (DC) Discharge Disposition: HOME SELF-CARE
[2021-11-15 14:20] VITALS: BP 123/71; PULSE 75; TEMP 98.4
== END 2021-11-15 15:01 | disposition home or self-care (01) | DRG 871 ==
LOC: EC 18:07 → 4SSUR 19:52
PROVIDERS: ADMIT Internal Medicine; ATTEND Internal Medicine
DX: A41.51 Sepsis due to Escherichia coli [E. coli] (principal); U07.1 COVID-19; N39.0 Urinary tract infection, site not specified; Z28.310 Unvaccinated for COVID-19; E87.6 Hypokalemia; R31.9 Hematuria, unspecified; F17.210 Nicotine dependence, cigarettes, uncomplicated; Z79.899 Other long term (current) drug therapy; Z86.718 Personal history of other venous thrombosis and embolism
CPT/HCPCS: 36415; 71046; 80048; 80053; 80202; 81001; 83605; 83735; 84132; 85025; 85610; 85730; 87040; 87077; 87086; 87186; 87502; 87635; 93005; 96361; 96365; 96366; 96367; 96372; 99285